=== PATIENT | male | born 1945 | race Caucasian/White ===

== ENCOUNTER 2017-04-05 09:59 | Emergency (ER) | payer OTHER ==
[2017-04-05] MEDS ORDERED: DIAZEPAM 10 MG/2 ML SYR IVP ONE (10:23)
--- NOTE | 2017-04-05 10:28 | EDPHY ---
H & P Time Seen by Provider: 04/05/17 10:11 HPI/ROS: CHIEF COMPLAINT: Back pain, left lower extremity pain HISTORY OF PRESENT ILLNESS: 72-year-old male presents to the emergency department by private vehicle with his complaining of severe pain in his left leg and inability to walk. The patient has a history of chronic back pain. He has known herniated discs. He has been doing well for many years and then this morning woke up with severe pain. He states that he is unable to walk because he cannot put pressure on his left leg without severe pain. Feels weak and like it is going to give out on him. Denies bowel or bladder incontinence. He denies any known trauma or injury. He does think however he may have overdone it yesterday and thinks that he was "walking too much". He denies chest pain or difficulty breathing. He did try taking ibuprofen and tramadol this morning. He denies abdominal pain. REVIEW OF SYSTEMS: Constitutional: No fever, no chills. Eyes: No double or blurry vision. ENT: No sore throat. Respiratory: No cough, no shortness of breath. Cardiac: No chest pain. Gastrointestinal: No abdominal pain, vomiting or diarrhea. Genitourinary: No dysuria. Musculoskeletal: Back pain as above. No neck pain. Skin: No rashes. Neurological: No headache. 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 at bedside. Eyes: Pupils equal and round. Extraocular motions are all intact. ENT: Mouth: Mucous membranes moist. Respiratory: No wheezing, rhonchi, or rales, lungs are clear to auscultation. Cardiovascular: Regular rate and rhythm. Gastrointestinal: Abdomen is soft and nontender, no masses, no rebound or guarding, bowel sounds normal. Neurological: Alert and oriented x 3, cranial nerves II through XII grossly intact Skin: Warm and dry, no rashes. Musculoskeletal: Nontender to palpate along the cervical, thoracic or lumbar spine. Neck is supple. Extremities: Positive straight leg raise of the left, none on the right. Limited flexion of the left knee secondary to pain in his left hip and low back area. Reflexes are 1+ and equal for lower extremities bilaterally. Normal sensation to light touch with normal 2 point discrimination. Antalgic gait. Psychiatric: Patient is oriented X 3, there is no agitation. Constitutional: Initial Vital Signs Heart Rate 83 04/05/17 10:00 Respiratory Rate 18 04/05/17 10:00 Blood Pressure 147/87 H 04/05/17 10:00 O2 Sat (%) 96 04/05/17 10:00 O2 Delivery Mode Room Air Allergies/Adverse Reactions: Sulfa (Sulfonamide Antibiotics) Allergy (Unknown, Verified 04/05/17 10:04) as child gluten Allergy (Verified 04/05/17 10:06) Home Medications: Medication Instructions Recorded Diazepam [Valium] 5 mg PO TIDPRN PRN #15 tab 04/05/17 Zolpidem Tartrate [Ambien 5MG (*)] 5 mg PO HS 04/05/17 methylPREDNISolone [Medrol Dose 1 each PO AD #0 ea 04/05/17 Dashawn] oxyCODONE/APAP 5/325 [Percocet 1 - 2 tab PO Q4-6PRN PRN #15 tab 04/05/17 5/325] traMADol [Ultram 50 mg (*)] 50 mg PO Q4 04/05/17 Medical Decision Making - Diagnostics Imaging Results: Imaging Impressions Lumbar Spine MRI 04/05/17 10:23 Impression: 1. L5-S1: Left posterior lateral disk herniation (protrusion) abuts and deforms the left S1 nerve root in the ventrolateral recess. 2. Minimal compression of bilateral L5 nerve roots due to severe narrowing of the neural foramen. 3. Minimal compression of bilateral L4 nerve roots due to severe right and moderate to severe left neural foraminal stenosis. 4. No compression fracture or bone lesion. Findings discussed with Emergency Department Rebeca BELL on 04/05/2017 at 1204 hours. Imaging: Discussed imaging studies w/ package sorter Radiologist ED Course/Re-evaluation: 72-year-old male presents to the emergency department with chronic low back pain and now severe pain in his left hip and inability to walk. The patient feels weakness in his left leg is unable to walk because he feels like is going to buccal and give out. He denies any known trauma or injury. I recommended MRI of the lumbar spine for further evaluation given his weakness in his left leg and severe pain and inability to walk. The patient verbalized understanding and agreed. Patient had an IV established and was given Valium 5 mg IV for pain. Patient was also given 0.5 mg of IV Dilaudid. MRI reveals L5-S1 left disc protrusion as well as neural foraminal stenosis at L4-L5 and L5-S1. I discussed the case with Dr. Erickson who was on-call for Neurosurgery who agreed with Medrol Dosepak, anti-inflammatories and they will see him in follow- up in their office. This was discussed with the patient and he was comfortable with this plan. He is comfortable being discharged home. He is also given prescription for additional Valium and Percocet for severe pain. He was instructed to return if he developed footdrop, bowel or bladder incontinence, or if he felt worse in any way. Both the patient and his were comfortable with this plan. Differential Diagnosis: Back pain including but not limited to muscular pain, herniated disc, spine fracture, intra-abdominal causes and urinary tract infection. - Data Points Medications Given: Discontinued Medications Diazepam (Valium Injection) 5 mg IVP EDNOW ONE Stop: 04/05/17 10:24 Last Admin: 04/05/17 10:40 Dose: 5 mg Hydromorphone HCl (Dilaudid) 0.5 mg IVP EDNOW ONE Stop: 04/05/17 12:29 Last Admin: 04/05/17 12:36 Dose: 0.5 mg Departure - Departure Disposition: Home, Routine, Self-Care Clinical Impression: Lumbar radiculopathy, acute Back pain Qualifiers: Back pain location: low back pain Chronicity: acute Back pain laterality: left Sciatica presence: with sciatica Sciatica laterality: sciatica of left side Qualified Code(s): M54.42 - Lumbago with sciatica, left side Condition: Good Instructions: Sciatica (ED), Low Back Strain (ED), Lumbar Radiculopathy (ED), Back Pain (ED) Additional Instructions: Medrol Dosepak as discussed. Ibuprofen 600 mg every 8 hours as needed for pain. Valium as needed for muscular spasm. Percocet for severe pain as directed. Return to the emergency department if you develop footdrop, bowel or bladder incontinence, or if you feel worse in any way. Call to arrange follow-up appointment with on-call neurosurgeon. Tell them that you were seen in the emergency department and we spoke with Dr. Erickson while you are here. Referrals: Anselmo Erickson MD [Medical Doctor] - As per Instructions (Neurosurgeon on-call) Prescriptions: Diazepam [Valium] 5 mg PO TIDPRN PRN #15 tab PRN Reason: Spasms methylPREDNISolone [Medrol Dose Dashawn] 1 each PO AD #0 ea oxyCODONE/APAP 5/325 [Percocet 5/325] 1 - 2 tab PO Q4-6PRN PRN #15 tab PRN Reason: For Moderate To Severe Pain
[2017-04-05] MEDS ORDERED: HYDROmorphONE/DILAUDID 1 MG/ML SYR IVP ONE (12:28)
[2017-04-05 13:28] VITALS: BP 145/82; PULSE 66; RESP 16; TEMP 98.6; O2SAT 93
== END 2017-04-05 13:26 | disposition home or self-care (01) ==
DX: M54.16 Radiculopathy, lumbar region (principal); M54.42 Lumbago with sciatica, left side
CPT/HCPCS: 72148; 96374; 96375; 99285; J1170

== ENCOUNTER → 2017-04-05 | Outpatient (CLI) | payer OTHER | LOC: CIMAGING 17:26 | PROVIDERS: ATTEND Neurological Surgery | DX: M51.36 Other intervertebral disc degeneration, lumbar region (principal); M16.12 Unilateral primary osteoarthritis, left hip | CPT/HCPCS: 72100-PO ==